=== PATIENT | female | born 1995 | race Caucasian/White ===

== ENCOUNTER 2017-04-13 08:00 | Outpatient (CLI) | payer MEDICAID ==
[2017-04-13 18:59] LABS: BASOPHILS % (AUTO) 0.4 %; EOSINOPHILS # (AUTO) 0.1 10^3/uL (0.0-0.7); EOSINOPHILS % (AUTO) 1.3 %; HCT - HEMATOCRIT 39.5 % (37.0-47.0); HGB - HEMOGLOBIN 13.6 g/dL (12.0-16.0); LYMPHOCYTES # (AUTO) 2.4 10^3/uL (1.5-3.5); LYMPHOCYTES % (AUTO) 30.6 %; MEAN CORPUSCULAR HEMOGLOBIN 27.7 pg (27.0-31.0); MEAN CORPUSCULAR HGB CONC 34.3 g/dL (32.0-36.0); MEAN CORPUSCULAR VOLUME 80.9 fL (81.0-99.0); MEAN PLATELET VOLUME 8.8 fL (7.9-10.8); MONOCYTES # (AUTO) 0.5 10^3/uL (0.0-1.0); MONOCYTES % (AUTO) 6.3 %; NEUTROPHILS # (AUTO) 4.8 10^3/uL (1.5-6.6); NEUTROPHILS % (AUTO) 61.4 %; RED BLOOD COUNT 4.89 10^6/uL (4.20-5.40); RED CELL DISTRIBUTION WIDTH 13.7 % (12.0-15.0); UNCORRECTED WHITE BLOOD COUNT 7.9 x10^3/uL; WHITE BLOOD COUNT 7.9 x10^3/uL (4.8-10.8)
[2017-04-13 19:13] LABS: ALBUMIN/GLOBULIN RATIO 1.3 (1.0-2.2); BILIRUBIN,TOTAL 0.5 mg/dL (0.2-1.0); BUN - BLOOD UREA NITROGEN 8 mg/dL (6-20); CALCIUM 9.5 mg/dL (8.5-10.3); CARBON DIOXIDE - CO2 27 mmol/L (21-32); CHLORIDE 105 mmol/L (101-111); CHOLESTEROL 138 mg/dL; CREATININE 0.6 mg/dL (0.4-1.0); GFR - MDRD 125 (>89); GLUCOSE 93 mg/dL (70-100); HDL CHOLESTEROL 69 mg/dL; LDL/HDL RATIO 0.8 (<4.4); POTASSIUM 3.5 mmol/L (3.5-5.0); SODIUM 139 mmol/L (135-145); TOTAL PROTEIN 7.2 g/dL (6.7-8.2); TRIGLYCERIDES 80 mg/dL; VLDL CHOLESTEROL 16 mg/dL
== END 2017-04-23 23:59 ==
LOC: LAB.N 08:00
PROVIDERS: ATTEND Nurse Practitioner Gerontology
DX: Z13.9 Encounter for screening, unspecified (principal)
CPT/HCPCS: 36415; 80050; 80061

== ENCOUNTER 2017-06-28 20:31 | Emergency (ER) | payer MEDICAID ==
[2017-06-28 20:38] VITALS: BP 134/98
--- NOTE | 2017-06-28 20:40 | ED Physician Documentation ---
History of Present Illness - Stated complaint Stated Complaint: ANXIETY - Chief complaint Chief Complaint: MHE - History obtained from History obtained from: Patient - History of Present Illness Timing: Enter time (16:00), Today Pain level now: 0 Improved by: nothing Worsened by: no ameliorating factors - Additonal information Additional information: c/o generalized anxiety since 4 PM today without specific trigger. She says she missed appointment with [facility] recently, and then when it was twice rescheduled, she had to end up missing those due to conflicts with "all my CPS stuff". She has not pursued arranging for an appointment with [facility], says "I decided I'm done with them". Patient was prescribed Celexa by PMD in April, but she says she has not used this, as she is too worried regarding being told that if she misses a dose, she will experience unpleasant side effects. She tells me she thus is currently not taking any prescription medication. She c/o generalized anxiety without SI/HI/AH/VH. Review of Systems Cardiac: denies: Chest pain / pressure, Palpitations Psychiatric: reports: Anxiety, Insomnia. denies: Depressed, Suicidal, Homicidal , Hallucinations, Delusions PD PAST MEDICAL HISTORY - Past Medical History Past Medical History: Yes Psych: Anxiety - Past Surgical History Past Surgical History: Yes HEENT: Tonsil/Adenoidectomy - Present Medications Home Medications: Ambulatory Orders Medication Instructions Recorded Confirmed hydrOXYzine PAMOATE [Vistaril] 25 mg PO Q6H PRN #20 capsule 06/28/17 - Allergies Allergies/Adverse Reactions: Allergies Allergy/AdvReac Type Severity Reaction Status Date / Time No Known Drug Allergies Allergy Verified 06/28/17 20:37 - Social History Does the pt smoke?: Yes Smoking Status: Current every day smoker Does the pt drink ETOH?: No Does the pt have substance abuse?: No Substance Use and Type: Other ([facility] records indicate h/o heroin use) - Immunizations Immunizations are current?: Yes - POLST Patient has POLST: No PD ED PE NORMAL - Vitals Vital signs reviewed: Yes - General General: Alert and oriented X 3, Well developed/nourished, Other (hyperkinetic, pacing around room. answers are mildly pressured but otherwise accurate. Poor eye contact.) - HEENT HEENT: PERRL, EOMI, Moist mucous membranes - Neck Neck: Supple, no meningeal sign - Cardiac Cardiac: RRR, No murmur - Respiratory Respiratory: No respiratory distress, Clear bilaterally Results - Vitals Vitals: Vital Signs - 24 hr 06/28/17 20:33 Temperature 36.4 C L Heart Rate 109 H Respiratory 18 Rate Blood Pressure 134/98 H O2 Saturation 97 Oxygen O2 Source Room air PD MEDICAL DECISION MAKING - ED course Complexity details: reviewed old records, considered differential, d/w patient Departure - Departure Disposition: Home, Self Care Clinical Impression: Anxiety Condition: Good Instructions: ED Panic Attack Follow-Up: Lorene Sexton ARNP [Primary Care Provider] - Prescriptions: hydrOXYzine PAMOATE [Vistaril] 25 mg PO Q6H PRN #20 capsule PRN Reason: Anxiety Comments: DO NOT DRIVE for at least six hour after taking a dose of hydroxyzine (atarax, vistaril), as drowsiness is a common side effect, and sometimes the patient is not aware that they are drowsy. If you still feel drowsy/less alert after six hour, do not drive until you feel completely awake and alert. But, again, do not drive for a minimum of six hours after a dose even if you feel like you can drive. Discharge Date/Time: 06/28/17 21:04
[2017-06-28] MEDS ORDERED: hydrOXYzine PAMOATE 25 MG CAPSULE PO STA (20:53)
[2017-06-28] MEDS ORDERED: LORazepam 0.5 MG TABLET PO STA (20:54)
[2017-06-28] MEDS ORDERED: LORazepam 0.5 MG TABLET ONE (21:05)
[2017-06-28] MEDS ORDERED: hydrOXYzine PAMOATE 25 MG CAPSULE ONE (21:05)
== END 2017-06-28 21:04 | disposition home or self-care (01) ==
LOC: ED 20:31
DX: F41.9 Anxiety disorder, unspecified (principal)
CPT/HCPCS: 99283; A9270

== ENCOUNTER 2018-03-02 14:47 | Emergency (ER) | payer MEDICAID ==
[2018-03-02 14:55] VITALS: BP 123/80
--- NOTE | 2018-03-02 15:08 | ED Physician Documentation ---
PD HPI LOWER EXT INJURY - Stated complaint Stated Complaint: RT FOOT SWELLING - Chief complaint Chief Complaint: Ext Problem - History obtained from History obtained from: Patient - History of Present Illness PD HPI LOW EXT INJURY LOCATION: Right, Foot Type of injury: Twist Where injury occurred: Home Timing - onset: Last night Worsened by: Moving, Palpating, Other (weight bearing) Associated symptoms: Swelling Similar symptoms before: Has not had sx before - Additional information Additional information: The patient is a 22-year-old female who presents with pain and swelling of her right foot. She twisted her right ankle last night and has had pain since that time. The pain is worse with weightbearing. She denies any other injuries. She has no history of similar symptoms in the past. Review of Systems Constitutional: denies: Fever Respiratory: denies: Dyspnea Musculoskeletal: reports: Extremity pain (right foot), Extremity swelling ( right foot.). denies: Back pain Neurologic: denies: Focal weakness, Numbness PD PAST MEDICAL HISTORY - Past Medical History Cardiovascular: None Respiratory: None Endocrine/Autoimmune: None Psych: Anxiety - Past Surgical History Past Surgical History: Yes HEENT: Tonsil/Adenoidectomy - Present Medications Home Medications: Ambulatory Orders Medication Instructions Recorded Confirmed HYDROcod/ACETAM 5/325 [Vicodin 1 - 2 ea PO Q6H PRN #20 tablet 03/02/18 5/325] QUEtiapine [SEROquel] 200 mg PO DAILY 03/02/18 03/02/18 - Allergies Allergies/Adverse Reactions: Allergies Allergy/AdvReac Type Severity Reaction Status Date / Time No Known Drug Allergies Allergy Verified 03/02/18 14:53 - Social History Does the pt smoke?: Yes Smoking Status: Current every day smoker Does the pt drink ETOH?: No Does the pt have substance abuse?: No - Immunizations Immunizations are current?: Yes - POLST Patient has POLST: No PD ED PE NORMAL - Vitals Vital signs reviewed: Yes (normal) - General General: Alert and oriented X 3, Well developed/nourished - HEENT HEENT: Atraumatic - Respiratory Respiratory: No respiratory distress - Derm Derm: No rash - Extremities Extremities: No calf tenderness / cord, Other (There is soft tissue swelling at the lateral aspect of the right midfoot, with tenderness to palpation over the fifth metatarsal base. There is no ecchymosis or break in the integument. There is no tenderness to palpation at the lateral malleolus or medial malleolus of the ankle. Distal neurovascular is intact.) - Neuro Neuro: Alert and oriented X 3, No motor deficit, No sensory deficit Results - Vitals Vitals: Oxygen O2 Source Room air - Rads (name of study) right foot Radiology: Prelim report reviewed, EMP read contemporaneously, See rad report ( Nondisplaced transverse intra-articular fracture of the base of the fifth metatarsal.) PD MEDICAL DECISION MAKING - ED course Complexity details: reviewed results, re-evaluated patient, considered differential, d/w patient, d/w family ED course: The patient's presentation is significant for a nondisplaced transverse fracture of the right fifth metatarsal base. This is visualized on x-ray examination, which confirms clinical suspicion. Treatment in the emergency department included application of a postop shoe, and administration of ibuprofen 800 mg orally. Crutches were dispensed. I discussed with her and her the expected course of injury, symptomatic treatment and outpatient follow-up, as well as potentially worrisome signs or symptoms that should prompt reevaluation in the emergency department. She is being discharged with prescription for Vicodin, 20 tablets. - Sepsis Event Vital Signs: Oxygen O2 Source Room air Departure - Departure Disposition: 01 Home, Self Care Clinical Impression: Fracture of base of fifth metatarsal bone Qualifiers: Laterality: right Condition: Stable Instructions: ED Crutch Walking, ED Fx Foot Follow-Up: [facility] [Provider Group] Prescriptions: HYDROcod/ACETAM 5/325 [Vicodin 5/325] 1 - 2 ea PO Q6H PRN #20 tablet PRN Reason: Pain Comments: Keep your right foot elevated as much the time as possible. Apply ice pack intermittently for the next 3 or 4 days. He can use ibuprofen, up to 800 mg 3 times daily for its anti-inflammatory effect. You can use Vicodin as prescribed if needed for pain. Follow up with orthopedics within 1-2 weeks. Call to schedule appointment. Return to the emergency department if you develop markedly increasing pain or swelling, or otherwise worsening symptoms. Discharge Date/Time: 03/02/18 16:07
--- NOTE | 2018-03-02 15:35 | XRAY Report ---
Procedure Date: 03/02/2018 Accession Number: [id number] / [id number] Procedure: XR - Foot 3 View RT CPT Code: FULL RESULT: EXAM: RIGHT FOOT RADIOGRAPHY EXAM DATE: 03/02/2018 03:26 PM. CLINICAL HISTORY: Right foot injury, with tenderness at 5th MT base. COMPARISON: Right ankle radiographs 12/07/2009. TECHNIQUE: 3 views. FINDINGS: Bones: Nondisplaced transverse fracture of the base of the fifth metatarsal with intra-articular extension. No additional fracture demonstrated. No suspicious focal osseous lesion. Joints: No dislocation/subluxation. No significant degenerative change. Soft Tissues: Mild soft tissue swelling adjacent to the fracture site. IMPRESSION: Nondisplaced transverse intra-articular fracture of the base of the fifth metatarsal. RADIA
[2018-03-02] MEDS ORDERED: IBUPROFEN 800 MG TABLET PO STA (15:42)
== END 2018-03-02 16:07 | disposition home or self-care (01) ==
LOC: ED 14:47
DX: S92.354A Nondisplaced fracture of fifth metatarsal bone, right foot, initial encounter for closed fracture (principal); F17.200 Nicotine dependence, unspecified, uncomplicated; W18.49XA Other slipping, tripping and stumbling without falling, initial encounter; Y92.009 Unspecified place in unspecified non-institutional (private) residence as the place of occurrence of the external cause
CPT/HCPCS: 73630; 99283; A9270

== ENCOUNTER 2018-08-01 12:36 | Outpatient (CLI) | payer MEDICAID | END 2018-08-01 12:37 | disposition EMS.NT | LOC: EMS 12:36 | PROVIDERS: ATTEND Surgery | DX: M54.2 Cervicalgia (principal); R22.0 Localized swelling, mass and lump, head; Y04.2XXA Assault by strike against or bumped into by another person, initial encounter ==

== ENCOUNTER 2018-09-19 11:29 | Outpatient (CLI) | payer MEDICAID ==
[2018-09-19 12:28] LABS: ALBUMIN 3.9 g/dL (3.2-5.5); ALBUMIN/GLOBULIN RATIO 1.3 (1.0-2.2); BILIRUBIN,TOTAL 0.6 mg/dL (0.2-1.0); CALCIUM 9.3 mg/dL (8.5-10.3); CREATININE 0.8 mg/dL (0.4-1.0)
[2018-09-19 12:30] LABS: BASOPHILS % (AUTO) 0.4 %; EOSINOPHILS # (AUTO) 0.1 10^3/uL (0.0-0.7); EOSINOPHILS % (AUTO) 1.3 %; HGB - HEMOGLOBIN 13.6 g/dL (12.0-16.0); LYMPHOCYTES # (AUTO) 1.8 10^3/uL (1.5-3.5); LYMPHOCYTES % (AUTO) 25.6 %; MEAN CORPUSCULAR HEMOGLOBIN 27.6 pg (27.0-31.0); MEAN CORPUSCULAR HGB CONC 33.2 g/dL (32.0-36.0); MEAN CORPUSCULAR VOLUME 83.2 fL (81.0-99.0); MEAN PLATELET VOLUME 8.9 fL (7.9-10.8); MONOCYTES # (AUTO) 0.5 10^3/uL (0.0-1.0); MONOCYTES % (AUTO) 7.7 %; NEUTROPHILS # (AUTO) 4.6 10^3/uL (1.5-6.6); PLT - PLATELET COUNT 240 10^3/uL (130-450); RED BLOOD COUNT 4.93 10^6/uL (4.20-5.40); RED CELL DISTRIBUTION WIDTH 13.9 % (12.0-15.0)
[2018-09-20 12:17] LABS: HEPATITIS C ANTIBODY NON-REACTIVE (NON-REACTIVE)
[2018-09-20 12:18] LABS: HEPATITIS B SURFACE ANTIGEN NON-REACTIVE (NON-REACTIVE)
== END 2018-09-19 11:30 | disposition home or self-care (01) ==
LOC: LAB 11:29
PROVIDERS: ATTEND Family Medicine
DX: Z13.818 Encounter for screening for other digestive system disorders (principal); Z13.228 Encounter for screening for other metabolic disorders; Z11.59 Encounter for screening for other viral diseases
CPT/HCPCS: 36415; 80053; 85025; 86317; 86704; 86709; 86803; 87340

== ENCOUNTER 2018-10-06 00:10 | Outpatient (CLI) | payer MEDICAID | END 2018-10-06 00:11 | disposition EMS.NT | LOC: EMS 00:10 | PROVIDERS: ATTEND Surgery | DX: R51 Headache (principal) ==

== ENCOUNTER 2018-11-02 15:23 | Outpatient (CLI) | payer MEDICAID ==
[2018-11-02 16:03] LABS: BASOPHILS % (AUTO) 0.4 %; EOSINOPHILS # (AUTO) 0.1 10^3/uL (0.0-0.7); EOSINOPHILS % (AUTO) 0.7 %; HGB - HEMOGLOBIN 12.4 g/dL (12.0-16.0); LYMPHOCYTES # (AUTO) 2.3 10^3/uL (1.5-3.5); LYMPHOCYTES % (AUTO) 21.1 %; MEAN CORPUSCULAR HEMOGLOBIN 27.9 pg (27.0-31.0); MEAN CORPUSCULAR HGB CONC 34.9 g/dL (32.0-36.0); MEAN CORPUSCULAR VOLUME 79.9 fL (81.0-99.0); MEAN PLATELET VOLUME 8.4 fL (7.9-10.8); MONOCYTES # (AUTO) 0.8 10^3/uL (0.0-1.0); MONOCYTES % (AUTO) 7.2 %; NEUTROPHILS # (AUTO) 7.6 10^3/uL (1.5-6.6); NEUTROPHILS % (AUTO) 70.6 %; PLT - PLATELET COUNT 265 10^3/uL (130-450); RED BLOOD COUNT 4.44 10^6/uL (4.20-5.40); RED CELL DISTRIBUTION WIDTH 13.5 % (12.0-15.0); WHITE BLOOD COUNT 10.8 x10^3/uL (4.8-10.8)
[2018-11-02 16:14] LABS: ALBUMIN 4.1 g/dL (3.2-5.5); ALBUMIN/GLOBULIN RATIO 1.2 (1.0-2.2); BILIRUBIN,TOTAL 0.8 mg/dL (0.2-1.0); CALCIUM 9.4 mg/dL (8.5-10.3); CREATININE 0.8 mg/dL (0.4-1.0); TOTAL PROTEIN 7.4 g/dL (6.7-8.2)
[2018-11-03 13:17] LABS: HEPATITIS B SURFACE ANTIGEN NON-REACTIVE (NON-REACTIVE)
== END 2018-11-02 15:24 | disposition home or self-care (01) ==
LOC: LAB 15:23
PROVIDERS: ATTEND Family Medicine
DX: Z13.818 Encounter for screening for other digestive system disorders (principal); Z13.228 Encounter for screening for other metabolic disorders; Z11.59 Encounter for screening for other viral diseases
CPT/HCPCS: 36415; 80053; 81599; 85025; 86709; 87340

== ENCOUNTER 2018-11-02 15:59 | Emergency (ER) | payer MEDICAID ==
[2018-11-02 16:15] VITALS: BP 127/79
[2018-11-02] MEDS ORDERED: FLUCONAZOLE 100 MG TABLET PO STA (17:16)
[2018-11-02] MEDS ORDERED: DEXAMETHASONE 10 MG/ML VIAL PO STA (17:16)
--- NOTE | 2018-11-02 17:24 | ED Physician Documentation ---
History of Present Illness - Stated complaint Stated Complaint: SORE THROAT - Chief complaint Chief Complaint: Heent - History obtained from History obtained from: Patient - History of Present Illness Timing: How many days ago (2) Pain level max: 5 Pain level now: 4 - Additonal information Additional information: 23 year old female with A sore throat for the past 2 days. Has had rhinorrhea, congestion and coughing. No fevers. Worse in the morning better during the day. Has not taken anything for this. Better with rest and worse with swallowing Review of Systems Ten Systems: 10 systems reviewed and negative Constitutional: denies: Fever, Chills Nose: reports: Rhinorrhea / runny nose, Congestion Throat: reports: Sore throat GI: denies: Abdominal Pain, Vomiting : denies: Now EGA PD PAST MEDICAL HISTORY - Past Medical History Cardiovascular: None Respiratory: None Endocrine/Autoimmune: None Psych: Anxiety - Past Surgical History Past Surgical History: Yes HEENT: Tonsil/Adenoidectomy - Present Medications Home Medications: Ambulatory Orders Medication Instructions Recorded Confirmed Cetirizine HCl/Pseudoephedrine 1 each PO BID PRN #30 tab.er.12h 11/02/18 [Zyrtec-D Tablet] Methadone 10 mg PO Q8H 11/02/18 11/02/18 - Allergies Allergies/Adverse Reactions: Allergies Allergy/AdvReac Type Severity Reaction Status Date / Time No Known Drug Allergies Allergy Verified 11/02/18 16:15 - Social History Does the pt smoke?: Yes Smoking Status: Current every day smoker Does the pt drink ETOH?: No Does the pt have substance abuse?: No - Immunizations Immunizations are current?: Yes - POLST Patient has POLST: No PD ED PE NORMAL - Vitals Vital signs reviewed: Yes - General General: Alert and oriented X 3, No acute distress - HEENT HEENT: Moist mucous membranes, Other (Posterior cobblestoning. No tonsillar exudates. Uvula midline. Normal phonation. No trismus) - Neck Neck: Supple, no meningeal sign, No adenopathy - Cardiac Cardiac: RRR - Respiratory Respiratory: No respiratory distress, Clear bilaterally - Derm Derm: Warm and dry - Neuro Neuro: Alert and oriented X 3 Results - Vitals Vitals: Vital Signs - 24 hr 11/02/18 16:14 Temperature 36.5 C Heart Rate 107 H Respiratory 20 Rate Blood Pressure 127/79 O2 Saturation 98 Oxygen O2 Source Room air - Labs Labs: Microbiology 11/02/18 16:15 Group A Strep Throat Culture - Preliminary Throat CULTURE IN PROGRESS. RESULTS TO FOLLOW. Laboratory Tests 11/02/18 16:15 Group A Strep Rapid Negative PD MEDICAL DECISION MAKING - ED course Complexity details: considered differential, d/w patient ED course: 23-year-old female with what appears to be an upper respiratory infection with a viral pharyngitis. Rapid strep is negative. We will continue supportive care and follow-up with her doctor. Patient also complained of vaginal itching and feeling like she has a yeast infection, similar to prior yeast infections. A dose of Diflucan was given. A dose of dexamethasone was given for the pharyngitis. Will place on decongestants for home. Patient is well-appearing, nontoxic. Well-hydrated. Tolerating p.o. without difficulty. Patient counseled that if she does not improve As expected with the Diflucan, she is to follow-up with her doctor for a full pelvic examination. Patient counseled regarding signs and symptoms for which I believe and urgent re-evaluation would be necessary. Patient with good understanding of and agreement to plan and is comfortable going home at this time This document was made in part using voice recognition software. While efforts are made to proofread this document, sound alike and grammatical errors may occur. Departure - Departure Disposition: 01 Home, Self Care Clinical Impression: Viral pharyngitis, Vaginal yeast infection Condition: Good Instructions: ED Vaginal Infec Fungal [place], ED Pharyngitis Viral Follow-Up: your,doctor in 1 week [Other] Prescriptions: Cetirizine HCl/Pseudoephedrine [Zyrtec-D Tablet] 1 each PO BID PRN #30 tab.er.12h PRN Reason: nasal congestion Comments: Return if you worsen. Drink plenty of fluids. Your rapid strep test is negative, but if your throat culture turns positive, we will call you for antibiotics. We also treated you for a vaginal yeast infection, if your symptoms do not improve, you need to follow-up with your doctor for a full pelvic examination. Discharge Date/Time: 11/02/18 17:34
[2018-11-02] MEDS ORDERED: CHERRY SYRUP 10 ML UDC PO ONE (17:25)
== END 2018-11-02 17:34 | disposition home or self-care (01) ==
LOC: ED 15:59
DX: J02.8 Acute pharyngitis due to other specified organisms (principal); B97.89 Other viral agents as the cause of diseases classified elsewhere; B37.3 Candidiasis of vulva and vagina; Z13.818 Encounter for screening for other digestive system disorders; Z13.228 Encounter for screening for other metabolic disorders; Z11.59 Encounter for screening for other viral diseases; F17.200 Nicotine dependence, unspecified, uncomplicated
CPT/HCPCS: 36415; 80053; 81599; 85025; 86705; 86706; 86709; 86803; 87070; 87077; 87340; 87430; 99283; A9270

== ENCOUNTER 2019-01-08 20:57 | Emergency (ER) | payer MEDICAID ==
--- NOTE | 2019-01-08 21:32 | ED Physician Documentation ---
PD HPI UPPER EXT INJURY - Stated complaint Stated Complaint: CANT MOVE FINGERS - Chief complaint Chief Complaint: Ext Problem - History obtained from History obtained from: Patient - History of Present Illness Location: Left, Finger Type of injury: Puncture wound Where injury occurred: Home Timing - onset: Yesterday Pain level now: >10 Recently seen: Not recently seen - Additonal information Additional information: This is a 23-year-old woman who tried to inject heroin into her left ring and pinky fingers yesterday. She tried to hit the vein across the volar surface of the pinky around 5 or 6 PM she says she did not get a flash so she did not inject at that time. By 8 PM she was starting to have pain in the pinky finger now the pain is just excruciating and she cannot move the pinky or the ring finger. She has a headache and did not feel well all night although she did not vomit. No fever. Denies pain up into the arm. She denies injecting elsewhere last night. Denies history of MRSA. She is not diabetic. Review of Systems Constitutional: denies: Fever Cardiac: denies: Palpitations GI: reports: Nausea Musculoskeletal: reports: Extremity pain, Extremity swelling PD PAST MEDICAL HISTORY - Past Medical History Past Medical History: Yes Cardiovascular: None Respiratory: None Endocrine/Autoimmune: None Psych: Anxiety, Post traumatic stress disorder - Past Surgical History Past Surgical History: Yes HEENT: Tonsil/Adenoidectomy - Present Medications Home Medications: Ambulatory Orders Medication Instructions Recorded Confirmed RX: Methadone 125 mg PO DAILY 11/02/18 01/08/19 - Allergies Allergies/Adverse Reactions: Allergies Allergy/AdvReac Type Severity Reaction Status Date / Time No Known Drug Allergies Allergy Verified 01/08/19 21:09 - Social History Does the pt smoke?: Yes Smoking Status: Current every day smoker Does the pt drink ETOH?: No Does the pt have substance abuse?: Yes Substance Use and Type: Marijuana, Heroin - Immunizations Immunizations are current?: Yes - POLST Patient has POLST: No PD ED PE NORMAL - Vitals Vital signs reviewed: Yes - General General: Alert and oriented X 3, No acute distress, Well developed/nourished - Cardiac Cardiac: RRR, No murmur - Respiratory Respiratory: No respiratory distress, Clear bilaterally - Derm Derm: Normal color - Extremities Extremities: Other (L pinky and 4th fingers swelling with sausage like swelling; excrutiating pain to straighten finger, pain palpable down the hyporthenar eminence) - Neuro Neuro: Alert and oriented X 3 Results - Vitals Vitals: Vital Signs - 24 hr 01/08/19 01/08/19 21:03 22:36 Temperature 36.4 C L 36.7 C Heart Rate 94 120 H Respiratory 18 12 Rate Blood Pressure 149/87 H 137/88 H O2 Saturation 100 100 Oxygen O2 Source Room air - Labs Labs: Laboratory Tests 01/08/19 21:45 Urine Color YELLOW Urine Clarity CLEAR Urine pH 6.0 Ur Specific [place] 1.020 Urine Protein NEGATIVE Urine Glucose (UA) NEGATIVE Urine Ketones NEGATIVE Urine Occult Blood SMALL H Urine Nitrite NEGATIVE Urine Bilirubin NEGATIVE Urine Urobilinogen 0.2 (NORMAL) Ur Leukocyte Esterase TRACE H Urine RBC 0-5 Urine WBC 4-5 Ur Squamous Epith Cells FEW Squamous Urine Bacteria Rare Ur Microscopic Review INDICATED Urine Culture Comments INDICATED Urine Opiates Screen POSITIVE H Ur Oxycodone Screen NEGATIVE Urine Methadone Screen POSITIVE H Ur Propoxyphene Screen NEGATIVE Ur Barbiturates Screen NEGATIVE Ur Tricyclics Screen NEGATIVE Ur Phencyclidine Scrn NEGATIVE Ur Amphetamine Screen POSITIVE H U Methamphetamines Scrn POSITIVE H U Benzodiazepines Scrn NEGATIVE Urine Cocaine Screen NEGATIVE U Cannabinoids Screen POSITIVE H PD MEDICAL DECISION MAKING - ED course Complexity details: d/w patient, d/w family ED course: I immediately left the room to contact [facility] regarding this patient for transfer for flexor tenosynovitis. Nursing staff indicated that they were unable to get an IV because of her history of IV drug abuse. At that time I went in the room to talk to her to consent her for a central line. The family wanted us to do ultrasound-guided PICC line which we do not have the capability of tonight in the emergency department. As I was discussing the risks of central line placement they decided that they were to sign out AGAINST MEDICAL ADVICE and go to [facility]. As I was leaving the room to get the AMA paperwork the hand surgeon call me back from [facility] and agreed to accept her in transfer by private vehicle without IV access or any labs. I did give the patient Ancef 1 g and clindamycin 300 mg IM prior to the transfer and she is agreed to go to [facility]. She was requested not to eat or drink anything. I did discuss with the patient the severity and potential disability associated with this if it is untreated including loss of function of the finger, amputation of the finger or part of the hand, blood infections with resultant potential for heart valve infections, severe disability due to untreated sepsis and . Her and her family all stated understanding of these potential risks and agreed that she would go directly to [facility] rather than going the opposite direction to [facility] where they are unlikely to be able to provide a definitive care she needs. Departure - Departure Disposition: 02 Transfer Acute Care Hosp Clinical Impression: Flexor tenosynovitis of finger Condition: Good Comments: Do not eat or drink anything. Go directly to [facility] ED. Dr Wheat is the hand surgeon on-call and has agreed to accept you in transfer for treatment.
[2019-01-08] MEDS ORDERED: VANCOMYCIN INJ 1 GM in SODIUM CHLORIDE 0.9% 500 ML IV STA (21:34)
[2019-01-08] MEDS ORDERED: SODIUM CHLORIDE 0.9% 1,000 ML IV ONE (21:34)
[2019-01-08] MEDS ORDERED: ceFAZolin 1 GM in SODIUM CHLORIDE 0.9% MINIBAG 100 ML IV STA (21:35)
[2019-01-08 22:15] LABS: MUDS CUTOFF CONCENTRATIONS CUTOFF CONC BELOW:
[2019-01-08 22:17] LABS: BILIRUBIN,URINE NEGATIVE (NEGATIVE); GLUCOSE, URINE (UA) NEGATIVE (NEGATIVE); KETONES,URINE (UA) NEGATIVE (NEGATIVE); LEUKOCYTE ESTERASE, URINE TRACE (NEGATIVE); NITRITE,URINE NEGATIVE (NEGATIVE); OCCULT BLOOD,URINE SMALL (NEGATIVE); PROTEIN,URINE NEGATIVE (NEGATIVE); UROBILINOGEN,URINE 0.2 (NORMAL) E.U./dL (NORMAL)
[2019-01-08] MEDS ORDERED: ceFAZolin 1 GM VIAL IM STA (22:22)
[2019-01-08 22:26] LABS: CLARITY,URINE CLEAR (CLEAR)
[2019-01-08] MEDS ORDERED: CLINDAMYCIN 300 MG/2 ML VIAL IM STA ×3 (22:26→22:39)
[2019-01-08 22:27] LABS: BACTERIA,URINE Rare /HPF (None Seen); RBC,URINE 0-5 /HPF (0-5); SQUAMOUS EPITHELIAL CELL,UR FEW Squamous (<= Few)
[2019-01-08 22:28] LABS: AMPHETAMINE SCREEN,URINE POSITIVE (NEGATIVE); BENZODIAZEPINES SCREEN, URINE NEGATIVE (NEGATIVE); COCAINE SCREEN URINE NEGATIVE (NEGATIVE); METHAMPHETAMINES SCREEN, URINE POSITIVE (NEGATIVE); OPIATE SCREEN, URINE POSITIVE (NEGATIVE); TRICYCLIC ANTIDEPRESSANT,URINE NEGATIVE (NEGATIVE)
[2019-01-08 22:29] LABS: METHADONE SCREEN, URINE POSITIVE (NEGATIVE); OXYCODONE SCREEN, URINE NEGATIVE (NEGATIVE); PROPOXYPHENE SCREEN, URINE NEGATIVE (NEGATIVE)
[2019-01-08 23:08] VITALS: BP 141/94
== END 2019-01-08 23:15 | disposition short-term general hospital (02) ==
LOC: ED 20:57
DX: M65.842 Other synovitis and tenosynovitis, left hand (principal); F11.10 Opioid abuse, uncomplicated; F12.10 Cannabis abuse, uncomplicated; F17.200 Nicotine dependence, unspecified, uncomplicated
CPT/HCPCS: 36415; 80048; 80306; 81001; 81003; 83605; 85025; 87040; 87086; 96372; 99283; 99284

== ENCOUNTER 2019-10-08 13:59 | Emergency (ER) | payer MEDICAID ==
[2019-10-08 14:07] VITALS: BP 126/82
[2019-10-08 14:20] LABS: BILIRUBIN,URINE NEGATIVE (NEGATIVE); GLUCOSE, URINE (UA) NEGATIVE (NEGATIVE); KETONES,URINE (UA) NEGATIVE (NEGATIVE); LEUKOCYTE ESTERASE, URINE TRACE (NEGATIVE); NITRITE,URINE NEGATIVE (NEGATIVE); OCCULT BLOOD,URINE MODERATE (NEGATIVE); PROTEIN,URINE NEGATIVE (NEGATIVE); UROBILINOGEN,URINE 0.2 (NORMAL) E.U./dL (NORMAL)
[2019-10-08 14:24] LABS: CLARITY,URINE CLEAR (CLEAR); HCG UR QUAL NEGATIVE
--- NOTE | 2019-10-08 14:27 | ED Physician Documentation ---
PD HPI FEMALE - Stated complaint Stated Complaint: FEM - Chief complaint Chief Complaint: UTI - History obtained from History obtained from: Patient - History of Present Illness Timing - onset: Today Timing - duration: Days (1) Timing - details: Abrupt onset, Still present Associated symptoms: Dysuria, Urinary frequency. No: Fever, Genital sore/lesion Contributing factors: No: , Exposed to STD Similar symptoms before: Diagnosis (UTIs) Review of Systems Constitutional: denies: Fever, Chills, Myalgias GI: denies: Abdominal Pain, Nausea, Vomiting Neurologic: denies: Near syncope PD PAST MEDICAL HISTORY - Past Medical History Cardiovascular: None Respiratory: None Endocrine/Autoimmune: None Psych: Anxiety, Post traumatic stress disorder - Past Surgical History Past Surgical History: Yes HEENT: Tonsil/Adenoidectomy - Present Medications Home Medications: Ambulatory Orders Medication Instructions Recorded Confirmed Methadone 125 mg PO DAILY 11/02/18 01/08/19 Phenazopyridine HCl [Pyridium] 100 mg PO TID PRN #15 tablet 10/08/19 Sulfamethox/Trimeth 800/160 1 each PO BID #14 tablet 10/08/19 [Bactrim Ds 800/160] - Allergies Allergies/Adverse Reactions: Allergies Allergy/AdvReac Type Severity Reaction Status Date / Time No Known Drug Allergies Allergy Verified 01/08/19 21:09 - Social History Does the pt smoke?: Yes Smoking Status: Current every day smoker Does the pt drink ETOH?: No Does the pt have substance abuse?: Yes - Immunizations Immunizations are current?: Yes - POLST Patient has POLST: No PD ED PE NORMAL - Vitals Vital signs reviewed: Yes - General General: Alert and oriented X 3, No acute distress, Well developed/nourished - Abdomen Abdomen: Soft, Non tender - Back Back: No CVA TTP - Derm Derm: Normal color, Warm and dry - Neuro Neuro: Alert and oriented X 3, No motor deficit, Normal speech Results - Vitals Vitals: Vital Signs - 24 hr 10/08/19 14:05 Temperature 37 C Heart Rate 114 H Respiratory 18 Rate Blood Pressure 126/82 H O2 Saturation 96 Oxygen O2 Source Room air - Labs Labs: Laboratory Tests 10/08/19 14:10 Urine Color YELLOW Urine Clarity CLEAR Urine pH 6.0 Ur Specific [place] >=1.030 H Urine Protein NEGATIVE Urine Glucose (UA) NEGATIVE Urine Ketones NEGATIVE Urine Occult Blood MODERATE H Urine Nitrite NEGATIVE Urine Bilirubin NEGATIVE Urine Urobilinogen 0.2 (NORMAL) Ur Leukocyte Esterase TRACE H Urine RBC 6-10 H Urine WBC 4-5 Ur Squamous Epith Cells FEW Squamous Urine Bacteria Rare Ur Microscopic Review INDICATED Urine Culture Comments INDICATED Urine HCG, Qual NEGATIVE PD MEDICAL DECISION MAKING - ED course Complexity details: considered differential, d/w patient Departure - Departure Disposition: 01 Home, Self Care Clinical Impression: Urinary tract infection Qualifiers: Urinary tract infection type: acute cystitis Hematuria presence: without hematuria Qualified Code(s): N30.00 - Acute cystitis without hematuria Condition: Stable Record reviewed to determine appropriate education?: Yes Instructions: ED UTI Cystitis Female Prescriptions: Phenazopyridine HCl [Pyridium] 100 mg PO TID PRN #15 tablet PRN Reason: Abdominal Pain Sulfamethox/Trimeth 800/160 [Bactrim Ds 800/160] 1 each PO BID #14 tablet Comments: Stay well-hydrated. Tylenol or ibuprofen if needed for fevers or pains. Phenazopyridine to help with urinary discomfort. Bactrim antibiotic twice daily as prescribed for the infection. The urine culture will result in 2 days and will call you if we need to modify the antibiotics based on that. Recheck if not improved well over the next 2 to 3 days and return sooner if worse. Discharge Date/Time: 10/08/19 14:58
[2019-10-08 14:40] LABS: BACTERIA,URINE Rare /HPF (None Seen); SQUAMOUS EPITHELIAL CELL,UR FEW Squamous (<= Few)
[2019-10-08] MEDS ORDERED: SULFAMETH/TRIMETH DS 800/160 MG TABLET PO STA (14:46)
[2019-10-08] MEDS ORDERED: PHENAZOPYRIDINE 100 MG TABLET PO STA (14:46)
== END 2019-10-08 14:58 | disposition home or self-care (01) ==
LOC: ED 13:59
DX: F17.200 Nicotine dependence, unspecified, uncomplicated (principal); N30.00 Acute cystitis without hematuria
CPT/HCPCS: 81001; 81025; 87086; 99283; 99284; A9270; 81003

== ENCOUNTER 2019-12-18 21:28 | Emergency (ER) | payer MEDICAID ==
--- NOTE | 2019-12-18 21:56 | ED Physician Documentation ---
History of Present Illness - Stated complaint Stated Complaint: L EAR,R THIGH PAIN - Chief complaint Chief Complaint: General - Additonal information Additional information: This is a 24-year-old female with a history of IV drug use who presents with multiple red tender areas on her legs. She has been injecting in her legs and she thinks that she missed the veins and has several spots on her right and left leg which are red, tender, and slightly swollen. A few the spots have improved over the last several days but 1 of them especially on the right anterior thigh has seemed to worsen. She is not on any antibiotics. She denies any chest pain or shortness of breath, no fever.She does note she has had some pain in her left ear over the last week and her hearing is worse on this side. Review of Systems Constitutional: denies: Fever Cardiac: denies: Chest pain / pressure Respiratory: denies: Dyspnea : denies: Dysuria Skin: reports: Rash Musculoskeletal: denies: Neck pain Neurologic: denies: Generalized weakness PD PAST MEDICAL HISTORY - Past Medical History Cardiovascular: None Respiratory: None Endocrine/Autoimmune: None Psych: Anxiety, Post traumatic stress disorder - Past Surgical History Past Surgical History: Yes HEENT: Tonsil/Adenoidectomy - Present Medications Home Medications: Ambulatory Orders Medication Instructions Recorded Confirmed Methadone 125 mg PO DAILY 11/02/18 01/08/19 Phenazopyridine HCl [Pyridium] 100 mg PO TID PRN #15 tablet 10/08/19 Sulfamethox/Trimeth 800/160 1 each PO BID #14 tablet 10/08/19 [Bactrim Ds 800/160] Cephalexin [Keflex] 500 mg PO Q6H #40 capsule 12/18/19 Sulfamethox/Trimeth 800/160 1 each PO BID #20 tablet 12/18/19 [Bactrim Ds 800/160] - Allergies Allergies/Adverse Reactions: Allergies Allergy/AdvReac Type Severity Reaction Status Date / Time hydrocodone AdvReac Nausea Verified 12/18/19 21:46 - Social History Does the pt smoke?: Yes Smoking Status: Current every day smoker Does the pt drink ETOH?: No Does the pt have substance abuse?: Yes - Immunizations Immunizations are current?: Yes - POLST Patient has POLST: No PD ED PE NORMAL - Vitals Vital signs reviewed: Yes - General General: Alert and oriented X 3, No acute distress - HEENT HEENT: PERRL, Other (Left tympanic membrane is bulging and erythematous with purulent effusion. Right TM is flat and clear) - Neck Neck: Supple, no meningeal sign - Cardiac Cardiac: Other (Mild tachycardia, regular rhythm) - Respiratory Respiratory: No respiratory distress, Clear bilaterally - Abdomen Abdomen: Normal bowel sounds, Soft, Non tender, Non distended - Derm Derm: Warm and dry - Extremities Extremities: Other (Over the right anterior thigh there are 4 areas of erythema to on the lateral aspect which are only 1 cm x 1 cm, but tender to palpation with no fluctuance. Over the mid anterior upper thigh there is a 3 cm x 2 cm area of erythema and edema with some induration but no fluctuance, no open wound. There are 2 other spots on the left thigh which are very localized 1 cm x 1.5 cm each tender but again without fluctuance or open wounds.) - Neuro Neuro: Alert and oriented X 3 - Psych Psych: Normal mood, Normal affect Results - Vitals Vitals: Vital Signs - 24 hr 12/18/19 12/18/19 21:35 22:34 Temperature 36.7 C Heart Rate 115 H 104 H Respiratory 18 16 Rate Blood Pressure 140/80 H 134/91 H O2 Saturation 100 99 Oxygen O2 Source Room air - Rads (name of study) POC bedside US MSK Radiology: Other (Over the areas of erythema there is cobblestoning but no fluid collection or drainable abscess. On the left leg there is a 1 cm section of a very superficial vein which is noncompressible suggesting superficial thrombophlebitis. Deeper veins appear compressible) PD MEDICAL DECISION MAKING - ED course Complexity details: considered differential (Cellulitis, abscess, thrombophlebitis, otitis media, otitis externa) ED course: On arrival patient is tachycardic but well-appearing. She does have a left otitis media on examination with no signs of more serious infection. On her legs she has several areas of localized erythema in areas that she is injected. The largest of these is on the right thigh. She does not have any drainable fluid collection on ultrasound, she does have cobblestoning in several of the areas, and one area of very limited superficial thrombophlebitis on the left lateral thigh. She has no signs of DVT or deeper extension of the thrombophlebitis. She was given a dose of Bactrim and Keflex here, this combination should treat her skin infections as well as her otitis media. Her heart rate on repeat examination is in the 90s on my exam, she is well- appearing, she has no fever, no chest pain, no shortness of breath, no signs of endocarditis, bacteremia, or more serious infection at this time, and appears she has a localized cellulitis and otitis media which should improve with outpatient therapy. I discussed return precautions with her as well as outpat ient follow-up. I also discussed safe practices for IV drug use including not reusing or sharing needles, and encouraged rehab and sobriety. Patient was very reasonable and appreciative and is working on getting help with her addiction. She was discharged home with antibiotics. Departure - Departure Disposition: , Self Care Clinical Impression: Cellulitis Qualifiers: Site of cellulitis: extremity Site of cellulitis of extremity: lower extremity Laterality: unspecified laterality Qualified Code(s): L03.119 - Cellulitis of unspecified part of limb Condition: Good Instructions: Cellulitis Dc, ED Otitis Media Acute Adult Prescriptions: Cephalexin [Keflex] 500 mg PO Q6H #40 capsule Sulfamethox/Trimeth 800/160 [Bactrim Ds 800/160] 1 each PO BID #20 tablet Comments: You appear to have several skin infections on your legs, but I did not see signs of a drainable abscess today. Please take both antibiotics as prescribed. If your symptoms and the redness is completely resolved after 7 days, you may stop the antibiotics, if you have any residual redness or symptoms, Continue them for the entire 10-day course. It appears that one of the small veins of your leg has a bit of clot in it due to inflammation/infection, please take ibuprofen (600mg every 6 hours) or aspirin (325mg daily) for the next week and use warm compresses as we discussed. You also have a ear infection which should be treated by the antibiotics as well. In addition to the ibuprofen or aspirin above, you may take Tylenol 650 mg every 6 hours for pain. If the redness on your legs is expanding despite treatment, or you are developing fever of 100.4 F or above, or you are having any other new or concerning symptoms, return to the emergency department.
[2019-12-18] MEDS: SULFAMETH/TRIMETH DS 800/160 MG TABLET PO STA (22:31)
[2019-12-18] MEDS: cephALEXin 250 MG CAPSULE PO STA (22:31)
[2019-12-18 22:35] VITALS: BP 134/91
== END 2019-12-18 22:38 | disposition home or self-care (01) ==
LOC: ED 21:28
DX: I80.02 Phlebitis and thrombophlebitis of superficial vessels of left lower extremity (principal); L03.119 Cellulitis of unspecified part of limb; R00.0 Tachycardia, unspecified; F17.200 Nicotine dependence, unspecified, uncomplicated
CPT/HCPCS: 99282; 99284; A9270

== ENCOUNTER 2019-12-28 20:27 | Emergency (ER) | payer MEDICAID ==
[2019-12-28] MEDS ORDERED: AMOX/CLAV 875 MG/125 MG TABLET PO STA (21:03)
--- NOTE | 2019-12-28 21:04 | ED Physician Documentation ---
History of Present Illness - Stated complaint Stated Complaint: LOSS OF HEARING LT EAR - Chief complaint Chief Complaint: Heent - History obtained from History obtained from: Patient (She was seen here recently for a left ear infection, she was on Keflex and Bactrim for that and a skin infection. She was unable to complete the course of antibiotics because "the antibiotics grew legs and walked away." Her leg is much better but has persistent mild pain in the left ear and loss of hearing. No fevers.) Review of Systems Constitutional: denies: Fever, Chills Nose: denies: Rhinorrhea / runny nose Throat: denies: Sore throat PD PAST MEDICAL HISTORY - Past Medical History Cardiovascular: None Respiratory: None Neuro: None Endocrine/Autoimmune: None GI: None [employer]: None : None HEENT: None Psych: Anxiety, Post traumatic stress disorder Musculoskeletal: None Derm: None - Past Surgical History Past Surgical History: Yes HEENT: Tonsil/Adenoidectomy - Present Medications Home Medications: Ambulatory Orders Medication Instructions Recorded Confirmed Methadone 125 mg PO DAILY 11/02/18 01/08/19 Phenazopyridine HCl [Pyridium] 100 mg PO TID PRN #15 tablet 10/08/19 Sulfamethox/Trimeth 800/160 1 each PO BID #14 tablet 10/08/19 [Bactrim Ds 800/160] Cephalexin [Keflex] 500 mg PO Q6H #40 capsule 12/18/19 Sulfamethox/Trimeth 800/160 1 each PO BID #20 tablet 12/18/19 [Bactrim Ds 800/160] Amox/Clav 875/125 [Augmentin] 1 each PO Q12H #20 tablet 12/28/19 - Allergies Allergies/Adverse Reactions: Allergies Allergy/AdvReac Type Severity Reaction Status Date / Time hydrocodone AdvReac Nausea Verified 12/28/19 20:34 - Social History Does the pt smoke?: Yes Smoking Status: Current every day smoker Does the pt drink ETOH?: No Does the pt have substance abuse?: Yes - Immunizations Immunizations are current?: Yes - POLST Patient has POLST: No PD ED PE NORMAL - Vitals Vital signs reviewed: Yes - General General: Alert and oriented X 3, No acute distress - HEENT HEENT: Other (Severe left otitis media without perforation) - Neuro Neuro: Alert and oriented X 3, Normal speech Results - Vitals Vitals: Vital Signs - 24 hr 12/28/19 12/28/19 20:30 21:21 Temperature 36.2 C L Heart Rate 99 82 Respiratory 16 18 Rate Blood Pressure 131/90 H 128/87 H O2 Saturation 100 100 Oxygen O2 Source Room air Departure - Departure Disposition: 01 Home, Self Care Clinical Impression: Otitis media Qualifiers: Otitis media type: suppurative Chronicity: acute Laterality: left Recurrence: non-recurrent Spontaneous tympanic membrane rupture: without spontaneous rupture Qualified Code(s): H66.002 - Acute suppurative otitis media without spontaneous rupture of ear drum, left ear Condition: Good Record reviewed to determine appropriate education?: Yes Instructions: ED Otitis Media Acute Adult Prescriptions: Amox/Clav 875/125 [Augmentin] 1 each PO Q12H #20 tablet Comments: Follow-up with your primary care physician in 1 week, if you do not have one call around you need to get 1. Return for new or worsening symptoms. Discharge Date/Time: 12/28/19 21:21
[2019-12-28 21:22] VITALS: BP 128/87
== END 2019-12-28 21:21 | disposition home or self-care (01) ==
LOC: ED 20:27
DX: H66.002 Acute suppurative otitis media without spontaneous rupture of ear drum, left ear (principal); F17.200 Nicotine dependence, unspecified, uncomplicated
CPT/HCPCS: 99282; 99283; A9270

== ENCOUNTER 2020-10-05 13:44 | Emergency (ER) | payer MEDICAID, OTHER ==
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
[2020-10-05 14:57] VITALS: BP 132/80
== END 2020-10-05 14:56 | disposition home or self-care (01) ==
LOC: ED 13:44
DX: S02.2XXA Fracture of nasal bones, initial encounter for closed fracture (principal); Y04.2XXA Assault by strike against or bumped into by another person, initial encounter; F17.200 Nicotine dependence, unspecified, uncomplicated
CPT/HCPCS: 99282; 99284

== ENCOUNTER 2023-02-16 08:00 | Outpatient (CLI) | payer MEDICAID, OTHER ==
[2023-02-16 16:50] LABS: BILIRUBIN,URINE NEGATIVE (NEGATIVE); GLUCOSE, URINE (UA) NEGATIVE (NEGATIVE); KETONES,URINE (UA) NEGATIVE (NEGATIVE); LEUKOCYTE ESTERASE, URINE NEGATIVE (NEGATIVE); NITRITE,URINE NEGATIVE (NEGATIVE); OCCULT BLOOD,URINE NEGATIVE (NEGATIVE); PROTEIN,URINE NEGATIVE (NEGATIVE); UROBILINOGEN,URINE 0.2 (NORMAL) E.U./dL (NORMAL)
[2023-02-16 16:54] LABS: CLARITY,URINE CLEAR (CLEAR); HCG UR QUAL NEGATIVE
[2023-02-16 21:40] LABS: CHLAMYDIA TRACHOMATIS DNA NEGATIVE (NEGATIVE); NEISSERIA GONORRHOEAE DNA NEGATIVE (NEGATIVE); TRICHOMONAS VAGINALIS DNA NEGATIVE (NEGATIVE)
== END 2023-02-16 23:59 | disposition home or self-care (01) ==
LOC: LAB.R 08:00
PROVIDERS: ATTEND Registered Nurse
DX: Z01.89 Encounter for other specified special examinations (principal)
CPT/HCPCS: 81001; 81003; 81025; 87086; 87491; 87591; 87661